=== PATIENT | male | born 1950 | race Caucasian/White ===

== ENCOUNTER 2019-03-01 14:20 | Emergency (ER) | payer OTHER, MEDICARE ==
--- NOTE | 2019-03-01 14:55 | EDPHY ---
H & P Time Seen by Provider: 03/01/19 14:55 HPI/ROS: CHIEF COMPLAINT: And recently high blood sugars HISTORY OF PRESENT ILLNESS: 68-year-old man diagnosed with diabetes 8-10 years ago on Januvia and increasing doses of metformin, increased to 1000 mg on Tuesday by his primary care doctor. It has been running in the high 200s for about 6 weeks and then over the last couple of days he is feeling lightheaded and thirsty, frequent urination, low energy. His glucose is 478 this morning. Symptoms are moderate. He did not sleep last night because of frequent urination. REVIEW OF SYSTEMS: Eye: no change in vision ENT: no sore throat Cardiac: no chest pain or syncope Pulmonary: no cough or SOB Abdomen: no vomiting, diarrhea, abdominal pain Musculoskeletal: Chronic back pain unchanged Skin: no rash Neuro: no headache Constitutional: no fever : HPI A comprehensive 10 point review of systems is otherwise negative aside from elements mentioned in the history of present illness. PAST MEDICAL HISTORY: Includes diabetes, chronic back pain, cholecystectomy Social history: Here with his General Appearance: Alert and conversant, cooperative. Eyes: No scleral icterus. ENT, Mouth: Dry mucous membranes. Respiratory: Normal respiratory effort, breath sounds equal, lungs are clear to auscultation. Cardiovascular: Regular rate and rhythm. Gastrointestinal: Abdomen is soft and non tender. Neurological: Alert, face symmetric, normal motor and sensory in extremities. Skin: Warm and dry, no rashes. Musculoskeletal: No peripheral edema. Psychiatric: Not agitated. Emergency Department course/MDM: EKG, normal saline 1 L, CBC and chemistry. Clinically dehydrated, likely due to polyuria from hyperglycemia. Initial glucose 480. 2nd L IV normal saline, 10 units IV insulin ordered. 2nd glucose is 249. 2nd dose IV insulin, glucose 95. 1840: Results discussed, feeling better, eating food. 1900: Dr. Boston Estevez, in agreement with plan, will inform PCP of need for follow-up tomorrow. Recheck glucose 123. Patient was to go home which I think is reasonable. He will be followed up in his clinic tomorrow. He will continue his other prescribed diabetes medications at this time. Smoking Status: Never smoked Constitutional: Initial Vital Signs Temperature (C) 36.5 C 03/01/19 14:35 Heart Rate 78 03/01/19 14:35 Respiratory Rate 16 03/01/19 14:35 Blood Pressure 120/94 H 03/01/19 14:35 O2 Sat (%) 93 03/01/19 14:35 O2 Delivery Mode Room Air Allergies/Adverse Reactions: No Known Allergies Allergy (Verified 03/01/19 14:38) Home Medications: Medication Instructions Recorded Lansoprazole [Prevacid] 30 mg PO DAILY 10/25/14 Levothyroxine [Synthroid 100 mcg 100 mcg PO DAILY06 10/25/14 (*)] Multivitamins [Multivitamin (*)] 1 each PO DAILY 10/25/14 [place]-3 Fatty Acids [Fish Oil 1000 1,000 mg PO DAILY 10/25/14 mg (*)] Simvastatin [Zocor 40 mg] 40 mg PO DAILY18 10/25/14 metFORMIN HCL [Glucophage 500 mg 1,000 mg PO BIDMEAL #60 tab 10/26/14 (*)] Lisinopril 03/01/19 Medical Decision Making - Diagnostics EKG Interpretation: 12-lead EKG interpreted by me; official reading is in computer system. My interpretation is sinus rhythm with interventricular conduction delay, right bundle pattern. Rate 63. Differential Diagnosis: Differential for hyperglycemia considered including but not limited to related to infection, trauma, ACS, medication noncompliance, worsening illness. Critical Care Time: Critical care time spent by me, Dr. Cartwright, exclusively with the care of this patient was 30 minutes, exclusive of PA or [employer] time and exclusive of separate procedures. The organ system at risk was metabolic and I ordered multiple doses of IV fluids and IV insulin and repeated lab testing to stabilize the patient and prevent worsening of the patient's condition. - Data Points Laboratory Results: Laboratory Results 03/01/19 14:56 03/01/19 14:56 03/01/19 03/01/19 03/01/19 19:32 19:16 18:23 WBC RBC Hgb POC Hgb Hct POC Hct MCV MCH MCHC RDW Plt Count MPV Neut % (Auto) Lymph % (Auto) Addison % (Auto) Eos % (Auto) Baso % (Auto) Nucleat RBC Rel Count Absolute Neuts (auto) Absolute Lymphs (auto) Absolute Monos (auto) Absolute Eos (auto) Absolute Basos (auto) Absolute Nucleated RBC Immature Gran % Immature Gran # POC Sodium Sodium POC Potassium Potassium POC Chloride Chloride Carbon Dioxide POC Total CO2 Anion Gap POC BUN BUN Creatinine POC Creatinine Estimated GFR Glucose POC Glucose 153 mg/dL H mg/dL 123 mg/dL H mg/dL 95 mg/dL mg/dL (70-100) (70-100) (70-100) Calcium 03/01/19 03/01/19 03/01/19 16:54 15:08 14:56 WBC RBC Hgb POC Hgb 16.0 gm/dL gm/dL (13.7-17.5) Hct POC Hct 47 % % (40-51) MCV MCH MCHC RDW Plt Count MPV Neut % (Auto) Lymph % (Auto) Addison % (Auto) Eos % (Auto) Baso % (Auto) Nucleat RBC Rel Count Absolute Neuts (auto) Absolute Lymphs (auto) Absolute Monos (auto) Absolute Eos (auto) Absolute Basos (auto) Absolute Nucleated RBC Immature Gran % Immature Gran # POC Sodium 140 mEq/L mEq/L (135-145) Sodium 136 mEq/L mEq/L (135-145) POC Potassium 4.3 mEq/L mEq/L (3.3-5.0) Potassium 4.5 mEq/L mEq/L (3.5-5.2) POC Chloride 103 mEq/L mEq/L (97-110) Chloride 102 mEq/L mEq/L (97-110) Carbon Dioxide 22 mEq/l mEq/l (22-31) POC Total CO2 25 mEq/L mEq/L (22-31) Anion Gap 12 mEq/L mEq/L (6-14) POC BUN 22 mg/dL mg/dL (7-23) BUN 23 mg/dL mg/dL (7-23) Creatinine 1.0 mg/dL mg/dL (0.7-1.3) POC Creatinine 1.0 mg/dL mg/dL (0.7-1.3) Estimated GFR > 60 Glucose 480 mg/dL H mg/dL (70-100) POC Glucose 249 mg/dL H mg/dL 482 mg/dL H mg/dL (70-100) (70-100) Calcium 10.0 mg/dL mg/dL (8.5-10.4) 03/01/19 14:56 WBC 6.56 10^3/uL 10^3/uL (3.80-9.50) RBC 5.34 10^6/uL 10^6/uL (4.40-6.38) Hgb 15.3 g/dL g/dL (13.7-17.5) POC Hgb Hct 44.8 % % (40.0-51.0) POC Hct MCV 83.9 fL fL (81.5-99.8) MCH 28.7 pg pg (27.9-34.1) MCHC 34.2 g/dL g/dL (32.4-36.7) RDW 13.3 % % (11.5-15.2) Plt Count 246 10^3/uL 10^3/uL (150-400) MPV 10.5 fL fL (8.7-11.7) Neut % (Auto) 64.8 % % (39.3-74.2) Lymph % (Auto) 25.0 % % (15.0-45.0) Addison % (Auto) 7.5 % % (4.5-13.0) Eos % (Auto) 1.2 % % (0.6-7.6) Baso % (Auto) 1.2 % % (0.3-1.7) Nucleat RBC Rel Count 0.0 % % (0.0-0.2) Absolute Neuts (auto) 4.25 10^3/uL 10^3/uL (1.70-6.50) Absolute Lymphs (auto) 1.64 10^3/uL 10^3/uL (1.00-3.00) Absolute Monos (auto) 0.49 10^3/uL 10^3/uL (0.30-0.80) Absolute Eos (auto) 0.08 10^3/uL 10^3/uL (0.03-0.40) Absolute Basos (auto) 0.08 10^3/uL 10^3/uL (0.02-0.10) Absolute Nucleated RBC 0.00 10^3/uL 10^3/uL (0-0.01) Immature Gran % 0.3 % % (0.0-1.1) Immature Gran # 0.02 10^3/uL 10^3/uL (0.00-0.10) POC Sodium Sodium POC Potassium Potassium POC Chloride Chloride Carbon Dioxide POC Total CO2 Anion Gap POC BUN BUN Creatinine POC Creatinine Estimated GFR Glucose POC Glucose Calcium Medications Given: Discontinued Medications Sodium Chloride (Ns) 1,000 mls @ 0 mls/hr IV EDNOW ONE; Wide Open PRN Reason: Protocol Stop: 03/01/19 15:05 Last Admin: 03/01/19 15:08 Dose: 1,000 mls Sodium Chloride (Ns) 1,000 mls @ 0 mls/hr IV EDNOW ONE; Wide Open PRN Reason: Protocol Stop: 03/01/19 15:36 Last Admin: 03/01/19 16:17 Dose: 1,000 mls Sodium Chloride (Ns) 1,000 mls @ 0 mls/hr IV EDNOW ONE; Wide Open PRN Reason: Protocol Stop: 03/01/19 17:29 Last Admin: 03/01/19 17:37 Dose: 1,000 mls Insulin Human Regular (Humulin R) 10 unit IVP EDNOW ONE Stop: 03/01/19 15:37 Last Admin: 03/01/19 15:46 Dose: 10 units Insulin Human Regular (Humulin R) 10 unit IVP EDNOW ONE Stop: 03/01/19 17:30 Last Admin: 03/01/19 17:37 Dose: 10 unit Point of Care Test Results: Chemistry 03/01/19 03/01/19 03/01/19 19:32 19:16 18:23 POC Sodium POC Potassium POC Chloride POC Total CO2 POC BUN POC Creatinine POC Glucose 153 mg/dL H mg/dL 123 mg/dL H mg/dL 95 mg/dL mg/dL (70-100) (70-100) (70-100) 03/01/19 03/01/19 16:54 15:08 POC Sodium 140 mEq/L mEq/L (135-145) POC Potassium 4.3 mEq/L mEq/L (3.3-5.0) POC Chloride 103 mEq/L mEq/L (97-110) POC Total CO2 25 mEq/L mEq/L (22-31) POC BUN 22 mg/dL mg/dL (7-23) POC Creatinine 1.0 mg/dL mg/dL (0.7-1.3) POC Glucose 249 mg/dL H mg/dL 482 mg/dL H mg/dL (70-100) (70-100) ISTAT H&H 03/01/19 15:08 POC Hgb 16.0 gm/dL gm/dL (13.7-17.5) POC Hct 47 % % (40-51) Departure - Departure Disposition: Home, Routine, Self-Care Clinical Impression: Hyperglycemia Condition: Good Instructions: Diabetic Hyperglycemia (ED) Referrals: Broderick Estevez MD [Primary Care Provider] - As per Instructions (Call at [phone] am to schedule appointment tomorrow with Dr. Estevez)
[2019-03-01] MEDS ORDERED: NS 1,000 ML IV ONE ×3 (15:04→17:28)
[2019-03-01 15:11] LABS: PLATELET COUNT 246 10^3/uL (150-400)
[2019-03-01] MEDS ORDERED: INSULIN REGULAR HUMAN 100 UNIT/ML UNIT IVP ONE ×2 (15:36→17:29)
--- NOTE | 2019-03-01 16:34 | CPEKG ---
Test Reason : OPEN Blood Pressure : / mmHG Vent. Rate : 063 BPM Atrial Rate : 063 BPM P-R Int : 149 ms QRS Dur : 120 ms QT Int : 457 ms P-R-T Axes : 054 -12 009 degrees QTc Int : 468 ms Sinus rhythm IVCD, consider atypical RBBB Confirmed by Wilfred Cartwright ([id number]) on 03/01/2019 4:34:03 PM Referred By: Wilfred Cartwright Confirmed By:Wilfred Cartwright
[2019-03-01 18:59] VITALS: BP 116/86
== END 2019-03-01 19:41 | disposition home or self-care (01) ==
DX: E11.65 Type 2 diabetes mellitus with hyperglycemia (principal); E86.9 Volume depletion, unspecified; Z79.84 Long term (current) use of oral hypoglycemic drugs
CPT/HCPCS: 93005; 96361; 96374; 99291; J1815; 82435-PO; 82565-PO; 82947-PO; 84132-PO; 84295-PO; 84520-PO; 85014-ER